=== PATIENT | female | born 1990 | race Caucasian/White ===

== ENCOUNTER 2016-12-14 10:42 | Emergency (ER) | payer MEDICAID ==
[~2016-12-14] VITALS: Ht 165.1 cm; Wt 63.5 kg
[2016-12-14 10:42] VITALS: BP_SYST 129
[2016-12-14 11:27] LABS: BILIRUBIN,URINE NEGATIVE (NEGATIVE); BLOOD, URINE 3+ (NEGATIVE); COLOR,URINE YELLOW (YELLOW); GLUCOSE,URINE NEGATIVE (NEGATIVE); KETONES,URINE NEGATIVE (NEGATIVE); LEUKOCYTE ESTERASE ,URINE 2+ (NEGATIVE); NITRITE, URINE POSITIVE (NEGATIVE); PH,URINE 6.5 (5.0-8.0); PROTEIN URINE NEGATIVE (NEGATIVE); UROBILINOGEN,URINE 0.2 (0.2-1.0)
[2016-12-14 11:29] LABS: CLARITY/URINE SLIGHTLY CLOUDY (CLEAR)
[2016-12-14 11:35] LABS: BACTERIA,URINE FEW /HPF (None Seen); WBC,URINE 20-50 /HPF (0-3)
[2016-12-14] MEDS ORDERED: SULFAMETHOXAZOLE/TRIMETHOPR DS 1 TABLET PO ONE (11:45)
[2016-12-14 11:58] VITALS: BP_SYST 122
== END 2016-12-14 11:58 | disposition home or self-care (01) ==
LOC: SED 10:42
DX: N39.0 Urinary tract infection, site not specified (principal); F17.210 Nicotine dependence, cigarettes, uncomplicated
CPT/HCPCS: 81000-TC; 81025; 87086; 87186-TC; 99284

== ENCOUNTER 2020-03-25 15:08 | Emergency (ER) | payer MEDICAID ==
[~2020-03-25] VITALS: Ht 162.6 cm; Wt 63.5 kg
[2020-03-25 15:13] VITALS: BP_SYST 129
[2020-03-25 15:33] LABS: BILIRUBIN,URINE NEGATIVE (NEGATIVE); BLOOD, URINE 2+ (NEGATIVE); CLARITY/URINE CLEAR (CLEAR); COLOR,URINE YELLOW (YELLOW); GLUCOSE,URINE NEGATIVE (NEGATIVE); KETONES,URINE NEGATIVE (NEGATIVE); LEUKOCYTE ESTERASE ,URINE 1+ (NEGATIVE); NITRITE, URINE NEGATIVE (NEGATIVE); PROTEIN URINE NEGATIVE (NEGATIVE); UROBILINOGEN,URINE 0.2 (0.2-1.0)
[2020-03-25 16:23] LABS: RBC,URINE 0-3 /HPF (0-3)
[2020-03-25 16:24] LABS: BACTERIA,URINE FEW /HPF (None Seen); MUCUS,URINE None Seen /LPF (None Seen)
[2020-03-25 16:43] VITALS: BP_SYST 129
== END 2020-03-25 16:42 | disposition home or self-care (01) ==
LOC: SED 15:08
DX: N39.0 Urinary tract infection, site not specified (principal)
CPT/HCPCS: 81000-TC; 81025; 87086; 99283

== ENCOUNTER 2020-05-31 21:32 | Emergency (ER) | payer MEDICAID ==
[~2020-05-31] VITALS: Ht 165.1 cm; Wt 63.5 kg
[2020-05-31 22:10] VITALS: BP_SYST 140
[2020-05-31] MEDS ORDERED: CEPH-568 PO (22:56)
[2020-05-31] MEDS ORDERED: PHEN-726 PO (22:57)
[2020-05-31] MEDS ORDERED: cephALEXin 500 MG CAPSULE PO ONE (23:00)
[2020-05-31] MEDS ORDERED: PHENAZOPYRIDINE HCL 100 MG TABLET PO ONE (23:00)
[2020-05-31 23:09] VITALS: BP_SYST 136
== END 2020-05-31 23:09 | disposition home or self-care (01) ==
LOC: SED 21:32
DX: N39.0 Urinary tract infection, site not specified (principal)
CPT/HCPCS: 81002; 99283

== ENCOUNTER 2020-08-24 11:24 | Emergency (ER) | payer MEDICAID ==
[~2020-08-24] VITALS: Ht 165.1 cm; Wt 63.5 kg
[~2020-08-24 11:24] MED LIST: CEPH-568 PO; PHEN-726 PO
[2020-08-24 11:25] VITALS: BP_SYST 133
[2020-08-24] MEDS ORDERED: HYDROcodone/ACETAMIN 7.5-325 MG TAB PO ONE (12:45)
[2020-08-24 15:40] VITALS: BP_SYST 112
== END 2020-08-24 15:45 | disposition home or self-care (01) ==
LOC: SED 11:24
DX: S33.5XXA Sprain of ligaments of lumbar spine, initial encounter (principal); X50.3XXA Overexertion from repetitive movements, initial encounter; Y93.89 Activity, other specified; Y92.89 Other specified places as the place of occurrence of the external cause; Y99.8 Other external cause status
CPT/HCPCS: 72100-TC; 99283

== ENCOUNTER 2021-02-18 12:14 | Emergency (ER) | payer MEDICAID ==
[~2021-02-18] VITALS: Ht 162.6 cm; Wt 59.4 kg
[2021-02-18 12:39] VITALS: BP_SYST 127
--- NOTE | 2021-02-18 12:42 | NUR ---
Patient to ER bed 3 to gown for evaluation. Side rails up. Report given to ESMER CHÁVEZ.
--- NOTE | 2021-02-18 12:45 | NUR ---
ER at bedside examining patient.
[2021-02-18 12:58] LABS: BILIRUBIN,URINE NEGATIVE (NEGATIVE); BLOOD, URINE 3+ (NEGATIVE); GLUCOSE,URINE TRACE (NEGATIVE); KETONES,URINE NEGATIVE (NEGATIVE); LEUKOCYTE ESTERASE ,URINE 2+ (NEGATIVE); NITRITE, URINE POSITIVE (NEGATIVE); PROTEIN URINE TRACE (NEGATIVE)
--- NOTE | 2021-02-18 13:00 | NUR ---
pt arrives w/ c/o painful urination and urgency. No other c/o at the moment
[2021-02-18] MEDS ORDERED: PHEN-726 PO (13:09)
[2021-02-18] MEDS ORDERED: NITR-85 PO (13:09)
[2021-02-18 13:14] LABS: CLARITY/URINE SLIGHTLY HAZY (CLEAR)
[2021-02-18 13:15] LABS: COLOR,URINE ORANGE (YELLOW)
[2021-02-18 13:18] LABS: BACTERIA,URINE MODERATE /HPF (None Seen)
[2021-02-18 13:29] VITALS: BP_SYST 127
--- NOTE | 2021-02-18 13:30 | NUR ---
Patient given written and verbal discharge instructions and verbalizes understanding. ER MD discussed with patient the results and treatment provided. Patient in stable condition. ID arm band removed. Rx of macrobid, pyridium given. Patient educated on pain management and to follow up with PMD. Pain Scale 3/10. Opportunity for questions provided and answered. Medication side effect fact sheet provided.
== END 2021-02-18 13:29 | disposition home or self-care (01) ==
LOC: SED 12:14
DX: N39.0 Urinary tract infection, site not specified (principal); Z79.899 Other long term (current) drug therapy
CPT/HCPCS: 81000; 87086; 99283

== ENCOUNTER 2021-02-25 09:34 | Emergency (ER) | payer MEDICAID ==
[~2021-02-25] VITALS: Ht 162.6 cm; Wt 59.4 kg
[~2021-02-25 09:34] MED LIST changes: +NITR-85 PO
[2021-02-25 09:41] VITALS: BP_SYST 129
--- NOTE | 2021-02-25 09:45 | NUR ---
ER DR. JONES EXAMINING PT
--- NOTE | 2021-02-25 09:48 | NUR ---
Patient to ER bed 8 to gown for evaluation. Side rails up. Report given to GUILLE CHÁVEZ.
--- NOTE | 2021-02-25 09:50 | NUR ---
PT CAME IN FROM HOME, STATES SHE WAS HERE 02/18 FOR UTI AND RX OF MACROBID GIVEN. STATES SHE HAS TAKEN PRESCRIBED AND CONTINUES TO FEEL DISCOMFORT WHEN URINATING. PT IS AMBULATORY, AAOX4, V/S STABLE
[2021-02-25 10:06] LABS: BASOPHILS % (AUTO) 0.5 % (0.0-2.0); EOSINOPHILS # (AUTO) 0.1 K/uL (0.0-0.4); EOSINOPHILS % (AUTO) 1.8 % (0.0-4.0); HEMATOCRIT 37.6 % (36-48); HEMOGLOBIN 12.7 g/dL (12.0-16.0); LYMPHOCYTES # (AUTO) 1.5 K/uL (1.0-5.5); LYMPHOCYTES % (AUTO) 40.5 % (20.5-51.5); MEAN CORPUSCULAR HEMOGLOBIN 30 pg (27-31); MEAN CORPUSCULAR HGB CONC 34 % (32-36); MEAN CORPUSCULAR VOLUME 88 fL (79.0-98.0); MONOCYTES # (AUTO) 0.3 K/uL (0.0-1.0); MONOCYTES % (AUTO) 7.9 % (1.7-9.3); NEUTROPHILS # (AUTO) 1.8 K/uL (1.8-7.7); NEUTROPHILS % (AUTO) 49.3 % (40.0-70.0); PLATELET COUNT (AUTO) 209 K/uL (130-430); RED BLOOD CELL COUNT(AUTO) 4.28 MIL/uL (4.2-6.2); RED CELL DISTRIBUTION WIDTH 12.8 % (9.0-15.0); WHITE BLOOD COUNT (AUTO) 3.6 K/uL (4.8-10.8)
--- NOTE | 2021-02-25 10:15 | NUR ---
UA COLLECTED AND SENT TO THE LAB
[2021-02-25 10:36] LABS: ANION GAP 7 (5-15); CALCIUM 8.5 mg/dL (8.4-11.0); CHLORIDE 103 mmol/L (98-107); CREATININE 0.84 mg/dL (0.55-1.30); GLUCOSE 92 mg/dL (70-99); POTASSIUM 3.9 mmol/L (3.5-5.1); SODIUM SERUM 136 mmol/L (136-145); UREA NITROGEN, BLOOD 17 mg/dL (8-21)
[2021-02-25 10:37] LABS: GFR AFRICAN AMERICAN 101 mL/min (>90)
[2021-02-25 10:40] LABS: ALANINE AMINOTRANSFERASE 18 U/L (12-78); ALBUMIN 3.6 g/dL (3.4-4.8); AMYLASE 52 U/L (0-100); ASPARTATE AMINOTRANSFERASE 13 U/L (10-37); LIPASE 79 U/L (73-393); TOTAL BILIRUBIN 0.3 mg/dL (0.0-1.0)
[2021-02-25 10:47] LABS: C-REACTIVE PROTEIN QUANT < 0.2 mg/dL (0-0.5)
[2021-02-25 10:58] LABS: BILIRUBIN,URINE NEGATIVE (NEGATIVE); BLOOD, URINE NEGATIVE (NEGATIVE); CLARITY/URINE CLEAR (CLEAR); COLOR,URINE YELLOW (YELLOW); GLUCOSE,URINE NEGATIVE (NEGATIVE); KETONES,URINE NEGATIVE (NEGATIVE); LEUKOCYTE ESTERASE ,URINE TRACE (NEGATIVE); NITRITE, URINE NEGATIVE (NEGATIVE); PROTEIN URINE NEGATIVE (NEGATIVE); UROBILINOGEN,URINE 0.2 (0.2-1.0)
--- NOTE | 2021-02-25 11:00 | NUR ---
PT RESTING IN BED, NO S/SX OF DISTRESS, V/S STABLE
[2021-02-25 11:16] LABS: BACTERIA,URINE FEW /HPF (None Seen); RBC,URINE 0-3 /HPF (0-3)
[2021-02-25 11:56] VITALS: BP_SYST 127
--- NOTE | 2021-02-25 11:59 | NUR ---
Patient given written and verbal discharge instructions and verbalizes understanding. ER MD discussed with patient the results and treatment provided. Patient in stable condition. ID arm band removed. NO Rx given. Patient educated on pain management and to follow up with PMD. Pain Scale 0/10. Opportunity for questions provided and answered. Medication side effect fact sheet provided.
== END 2021-02-25 11:59 | disposition home or self-care (01) ==
LOC: SED 09:34
DX: R30.0 Dysuria (principal); Z79.899 Other long term (current) drug therapy
CPT/HCPCS: 36415; 76376; 80053; 81000; 82150; 83690; 84703; 85025; 86140; 87086; 99284

== ENCOUNTER 2022-02-05 07:56 | Emergency (ER) | payer MEDICAID ==
[~2022-02-05] VITALS: Ht 162.6 cm; Wt 60.8 kg
[2022-02-05 08:01] VITALS: BP_SYST 127
--- NOTE | 2022-02-05 08:08 | NUR ---
BIBS WITH C/C OF BILATERAL FLANK PAIN, R > L. REPORTS FREQUENCY IN URINATION. STATES NEVER HAVE ANY KIDNEY STONES BEFORE, BUT HAS HAD SEVERAL UTI IN THE PAST. REPORTS FLANK PAIN 11/23. NO MED HX.
[2022-02-05] MEDS ORDERED: TRAM50TA PO (08:18)
[2022-02-05] MEDS ORDERED: NAPR-688 PO (08:18)
--- NOTE | 2022-02-05 08:20 | NUR ---
ER at bedside examining patient.
--- NOTE | 2022-02-05 08:21 | NUR ---
PLACED IN BED 8, DR. UREÑA MADE AWARE.
[2022-02-05 08:32] VITALS: BP_SYST 117
--- NOTE | 2022-02-05 08:36 | NUR ---
Patient given written and verbal discharge instructions and verbalizes understanding. ER MD discussed with patient the results and treatment provided. Patient in stable condition. ID arm band removed. Rx of Naproxen and Tramadol given. Patient educated on pain management and to follow up with PMD. Opportunity for questions provided and answered. Medication side effect fact sheet provided.
== END 2022-02-05 08:32 | disposition home or self-care (01) ==
LOC: SED 07:56
DX: S39.012A Strain of muscle, fascia and tendon of lower back, initial encounter (principal); R10.9 Unspecified abdominal pain; R30.0 Dysuria; Z79.899 Other long term (current) drug therapy; X58.XXXA Exposure to other specified factors, initial encounter; Y93.89 Activity, other specified; Y92.89 Other specified places as the place of occurrence of the external cause; Y99.8 Other external cause status
CPT/HCPCS: 81002; 81025; 99283

== ENCOUNTER 2022-07-29 18:12 | Emergency (ER) | payer MEDICAID ==
[~2022-07-29] VITALS: Ht 165.1 cm; Wt 59.0 kg
[~2022-07-29 18:12] MED LIST changes: +NAPR-688 PO; +TRAM50TA PO
[2022-07-29 18:22] VITALS: BP_SYST 131
[2022-07-29] MEDS ORDERED: PHEN-726 PO (19:11)
[2022-07-29] MEDS ORDERED: NITR-85 PO (19:11)
[2022-07-29 19:12] LABS: BILIRUBIN,URINE NEGATIVE (NEGATIVE); COLOR,URINE ORANGE (YELLOW); GLUCOSE,URINE 1+ (NEGATIVE); KETONES,URINE NEGATIVE (NEGATIVE); PROTEIN URINE 1+ (NEGATIVE)
[2022-07-29 19:19] LABS: BASOPHILS % (AUTO) 0.2 % (0.0-2.0); EOSINOPHILS % (AUTO) 0.7 % (0.0-4.0); HEMATOCRIT 36.9 % (36-48); HEMOGLOBIN 12.3 g/dL (12.0-16.0); LYMPHOCYTES # (AUTO) 1.7 K/uL (1.0-5.5); LYMPHOCYTES % (AUTO) 24.4 % (20.5-51.5); MEAN CORPUSCULAR HEMOGLOBIN 30 pg (27-31); MEAN CORPUSCULAR HGB CONC 33 % (32-36); MEAN CORPUSCULAR VOLUME 89 fL (79.0-98.0); MONOCYTES # (AUTO) 0.6 K/uL (0.0-1.0); NEUTROPHILS # (AUTO) 4.5 K/uL (1.8-7.7); NEUTROPHILS % (AUTO) 65.7 % (40.0-70.0); PLATELET COUNT (AUTO) 275 K/uL (130-430); RED BLOOD CELL COUNT(AUTO) 4.17 MIL/uL (4.2-6.2); RED CELL DISTRIBUTION WIDTH 13.4 % (9.0-15.0); WHITE BLOOD COUNT (AUTO) 6.9 K/uL (4.8-10.8)
[2022-07-29 19:39] LABS: BLOOD, URINE TRACE (NEGATIVE); CLARITY/URINE HAZY (CLEAR); LEUKOCYTE ESTERASE ,URINE 1+ (NEGATIVE); NITRITE, URINE NEGATIVE (NEGATIVE)
[2022-07-29 19:41] LABS: BACTERIA,URINE FEW /HPF (None Seen); MUCUS,URINE None Seen /LPF (None Seen); RBC,URINE NONE SEEN /HPF (0-3)
[2022-07-29 19:49] VITALS: BP_SYST 124
--- NOTE | 2022-07-29 19:49 | NUR ---
Patient is alert and oriented x4, respirations even and unlabored, speaking in full sentences and ambulating with a steady gait. Denied any acute distress at this time. Okay for discharge per Dr. Browne. RN went over and provided a printed copy of the discharge instructions and prescriptions. ED and 911 precautions given. Patient verbalized understanding.
[2022-07-29 20:39] LABS: ANION GAP 7 (5-15); CHLORIDE 105 mmol/L (98-107); CREATININE 1.12 mg/dL (0.55-1.30); GFR AFRICAN AMERICAN 72 mL/min (>90); GLUCOSE 100 mg/dL (70-99); UREA NITROGEN, BLOOD 12 mg/dL (8-21)
[2022-07-29 21:35] LABS: ALANINE AMINOTRANSFERASE 16 U/L (12-78); AMYLASE 47 U/L (0-100); ASPARTATE AMINOTRANSFERASE 13 U/L (10-37); C-REACTIVE PROTEIN QUANT < 0.2 mg/dL (0-0.5); TOTAL BILIRUBIN 0.2 mg/dL (0.0-1.0)
== END 2022-07-29 19:48 | disposition home or self-care (01) ==
LOC: SED 18:12
DX: N39.0 Urinary tract infection, site not specified (principal); R30.0 Dysuria; R35.0 Frequency of micturition; Z79.899 Other long term (current) drug therapy
CPT/HCPCS: 36415; 80053; 81000; 82150; 85025; 86140; 87086; 99283

== ENCOUNTER 2022-10-27 03:26 | Emergency (ER) | payer MEDICAID ==
[~2022-10-27] VITALS: Ht 162.6 cm; Wt 59.0 kg
[2022-10-27 03:32] VITALS: BP_SYST 113
[2022-10-27 04:12] LABS: HCG,QUAL RESULT NEGATIVE (NEGATIVE)
[2022-10-27 04:12] LABS: CLARITY/URINE SLIGHTLY CLOUDY (CLEAR)
[2022-10-27 04:14] LABS: COLOR,URINE ORANGE (YELLOW)
[2022-10-27] MEDS ORDERED: PHENAZOPYRIDINE HCL 100 MG TABLET PO ONE (04:15)
[2022-10-27] MEDS ORDERED: KETOROLAC TROMETHAMINE 30 MG VIAL IM ONE (04:15)
[2022-10-27 04:27] LABS: WBC,URINE 50-80 /HPF (0-3)
[2022-10-27 04:28] LABS: BACTERIA,URINE RARE /HPF (None Seen); MUCUS,URINE None Seen /LPF (None Seen)
[2022-10-27] MEDS ORDERED: NITR-85 PO (04:40)
[2022-10-27] MEDS ORDERED: NITROFURANTOIN MONOHYD/M-CRYST 100 MG CAPSULE (MacroBID) PO ONE (04:45)
[2022-10-27] MEDS ORDERED: PHEN-726 PO (04:54)
[2022-10-27 04:55] VITALS: BP_SYST 113
== END 2022-10-27 05:20 | disposition home or self-care (01) ==
LOC: SED 03:26
DX: N39.0 Urinary tract infection, site not specified (principal); R39.198 Other difficulties with micturition; Z79.899 Other long term (current) drug therapy
CPT/HCPCS: 99283; 81000; 84703; 87086; 96372; J1885

== ENCOUNTER 2023-07-27 10:13 | Emergency (ER) | payer MEDICAID ==
[~2023-07-27] VITALS: Ht 162.6 cm; Wt 59.0 kg
[2023-07-27 10:45] VITALS: BP_SYST 158; PULSE 107; RESP 19; TEMP 97.9; O2SAT 97
[2023-07-27] MEDS ORDERED: NITR-85 PO (11:56)
[2023-07-27] MEDS ORDERED: PHEN-622 PO (11:56)
[2023-07-27 12:16] LABS: BILIRUBIN,URINE NEGATIVE (NEGATIVE); BLOOD, URINE 3+ (NEGATIVE); CLARITY/URINE CLEAR (CLEAR); GLUCOSE,URINE TRACE (NEGATIVE); KETONES,URINE NEGATIVE (NEGATIVE); LEUKOCYTE ESTERASE ,URINE TRACE (NEGATIVE); NITRITE, URINE POSITIVE (NEGATIVE); PROTEIN URINE TRACE (NEGATIVE)
[2023-07-27 12:57] LABS: BACTERIA,URINE RARE /HPF (None Seen)
[2023-07-27 12:58] LABS: COLOR,URINE AMBER (YELLOW)
[2023-07-27 13:08] VITALS: BP_SYST 158; PULSE 107; RESP 19; TEMP 97.9; O2SAT 97
== END 2023-07-27 13:09 | disposition home or self-care (01) ==
LOC: SED 10:13
DX: N39.0 Urinary tract infection, site not specified (principal); R30.0 Dysuria; R39.15 Urgency of urination; R10.30 Lower abdominal pain, unspecified; Z79.899 Other long term (current) drug therapy
CPT/HCPCS: 81000; 81001; 81015; 81025; 87086; 99283